=== PATIENT | female | born 1955 | race Hispanic/Latino ===

== ENCOUNTER 2018-08-11 09:34 | Emergency (ER) | payer OTHER ==
--- NOTE | 2018-08-11 10:42 | ER ---
Nurse's Notes [facility] Name: Sandra Richmond Age: 62 yrs Sex: Female : 1955 Arrival Date: 08/11/2018 Time: 09:40 Bed Waiting Private MD: Diagnosis: Presentation: 08/11 09:56 Presenting complaint: pt refusing to walk back to a room, pt verbally encouraged to be iw seen by her sons, pt is A\T\OX3, pt walked out of dept with son. Assessment: 09:56 Reassessment:. iw 10:40 Reassessment: pt was noted to be running away from son in parking lot, [place] [employer] was called iw by her son, pt was taken into police custody. ED Course: :40 Patient arrived in ED. mr Administered Medications: No medications were administered Outcome: 10:41 Patient left the ED. iw Signatures: Akua Valentino Irene, RN RN iw
== END 2018-08-11 10:41 | disposition left against medical advice (07) ==
LOC: ER 09:34
DX: Z53.21 Procedure and treatment not carried out due to patient leaving prior to being seen by health care provider (principal)
CPT/HCPCS: 99281